=== PATIENT | male | born 1980 | race African-American/Black ===

== ENCOUNTER 2017-10-27 07:18 | Emergency (ER) | payer SELFPAY ==
[2017-10-27 07:24] VITALS: BP 137/73
[2017-10-27] MEDS ORDERED: ALBUTEROL SULFATE 0.083% NEB 2.5 MG/3 ML AMPUL NEB ONE (07:37)
--- NOTE | 2017-10-27 07:38 | ER Document Report ---
HPI - HPI Patient complains to provider of: congestion Onset: Other - 4 days Onset/Duration: Gradual Pain Level: 0 Context: 37-year-old smoker male complaining of congestion and cough. He is worried he is getting a sinus infection. He came here before he went to work. No fever, chest pain, shortness of breath. Associated Symptoms: None Exacerbated by: Denies Relieved by: Denies Similar symptoms previously: Yes Recently seen / treated by doctor: No - ROS ROS below otherwise negative: Yes Systems Reviewed and Negative: Yes All other systems reviewed and negative Past Medical History - General Information source: Patient - Social History Smoking Status: Current Every Day Smoker Frequency of alcohol use: None Drug Abuse: None Lives with: Family Family History: Reviewed & Not Pertinent - Medical History Medical History: Negative Surgical Hx: Negative - Immunizations Hx Diphtheria, Pertussis, Tetanus Vaccination: Yes Vertical Provider Document - CONSTITUTIONAL Agree With Documented VS: Yes Exam Limitations: No Limitations - INFECTION CONTROL TRAVEL OUTSIDE OF THE [place] IN LAST 30 DAYS: No - HEENT HEENT: Normocephalic, PERRLA. negative: Conjuctival Injection, Pharyngeal Erythema, Tympanic Membrane Red, Tympanic Membrane Bulging Notes: boggy nares, non tender sinus, no post nasal drip - NECK Neck: Supple. negative: Lymphadenopathy-Left, Lymphadenopathy-Right - RESPIRATORY Respiratory: Breath Sounds Normal, No Respiratory Distress, Rhonchi - coarse on expiration, changes with cough - CARDIOVASCULAR Cardiovascular: Regular Rate, Regular Rhythm - MUSCULOSKELETAL/EXTREMETIES Musculoskeletal/Extremeties: MAEW - NEURO Level of Consciousness: Awake, Alert - DERM Integumentary: Warm, Dry Course - Re-evaluation Re-evalutation: 10/27/17 08:11 lungs clear after the nebulizer, he states that it helped. 10/27/17 08:11 Discharge - Discharge Clinical Impression: Upper respiratory infection Qualifiers: URI type: unspecified viral URI Qualified Code(s): J06.9 - Acute upper respiratory infection, unspecified Condition: Good Disposition: HOME, SELF-CARE Instructions: Acetaminophen, Use of Dsyj-Qlw-Doyulbv Ibuprofen ([facility]), Inhaled Bronchodilators ([facility]), Upper Respiratory Illness ([facility]) Additional Instructions: plenty of fluids stop smoking use the inhaler every 3-4 hours tylenol motrin return to er if symptoms worsen Prescriptions: Albuterol Sulfate [Proair HFA Inhalation Aerosol 8.5 gm MDI] 2 puff IH Q3HP PRN #1 [email or web address] PRN Reason: Forms: Return to Work
== END 2017-10-27 08:09 | disposition home or self-care (01) ==
LOC: ER 07:18
DX: J06.9 Acute upper respiratory infection, unspecified (principal); R09.81 Nasal congestion; R05 Cough; F17.200 Nicotine dependence, unspecified, uncomplicated
CPT/HCPCS: 94640; 99283